=== PATIENT | female | born 1955 | race Caucasian/White ===

== ENCOUNTER 2017-09-23 10:15 | Emergency (ER) | payer OTHER ==
[~2017-09-23] VITALS: Wt 54.5 kg
[2017-09-23] MEDS ORDERED: SOD CHLORIDE 0.9% 500 ML IV STA (11:01)
[2017-09-23] MEDS ORDERED: ACETAMINOPHEN 325 MG TAB PO STA (11:01)
[2017-09-23] MEDS ORDERED: PROCHLORPERAZINE 10 MG INJ IV STA (11:01)
[2017-09-23] MEDS ORDERED: ONDANSETRON 4 MG INJ IV STA (11:01)
[2017-09-23] MEDS ORDERED: DIPHENHYDRAMINE 50 MG INJ IV STA (11:01)
[2017-09-23 11:24] LABS: BASOPHIL # 0.1 10^3/ul (0.0-0.1); BASOPHILS % 0.9 % (0.0-2.0); EOSINOPHILS # 0.1 10^3/ul (0.0-0.5); EOSINOPHILS % 0.8 % (0.0-7.0); HEMATOCRIT 41.9 % (37.0-47.0); HEMOGLOBIN 13.3 g/dl (12.0-16.0); LYMPHOCYTES % 26.5 % (15.0-51.0); MEAN CORPUSCULAR HEMOGLOBIN 26.6 pg (29.0-33.0); MEAN CORPUSCULAR HGB CONC 31.7 g/dl (32.0-37.0); MEAN CORPUSCULAR VOLUME 83.8 fl (82.0-101.0); MEAN PLATELET VOLUME 10.4 fl (7.4-10.4); MONOCYTE # 0.3 10^3/ul (0.3-0.9); MONOCYTES % 3.6 % (0.0-11.0); NEUTROPHIL # 5.1 10^3/ul (1.6-7.5); NEUTROPHILS % 67.4 % (39.0-77.0); PLATELET COUNT 265 10^3/UL (140-415); RED CELL DISTRIBUTION WIDTH 14.2 % (11.5-14.5); WHITE BLOOD COUNT 7.6 10^3/ul (4.8-10.8)
[2017-09-23 11:27] LABS: CALCIUM 9.4 mg/dl (8.4-10.2); CREATININE 0.57 mg/dl (0.44-1.00); INR 0.84; POTASSIUM 3.9 mmol/L (3.5-5.1); PROTIME 11.5 Sec (12.2-14.2); PT RATIO 0.9
--- NOTE | 2017-09-23 11:31 | ERD ---
ER Documentation Chief Complaint Chief Complaint HEADACHE NON TRAUMATIC WITH NAUSEA AND VOMITING AND DIZZINESS.NO NEURO DEF HPI This is a 62-year-old female with a past medical history of hypertension, diabetes and cataracts who is presenting with 4-5 days of bilateral eye pain with 1 day of headache, photophobia, nausea, vomiting and diarrhea. The patient reports that her eyes were itchy several days ago and she got an over- the-counter eye medication. They do not know what the medication was. However , after applying this medication, she developed eye burning and pain. She washed the substance off immediately and copiously, but she has continued to have pain since then. She endorses progressive blurry vision bilaterally as well. She does wear glasses for reading, but she did not bring them today. The patient also endorses a frontal headache centered around her eyes that began more recently. She does have a history of headaches, but she feels like this is more intense and related to her eye pain. She does not endorse any neck stiffness or pain. The patient has had several episodes of nausea with nonbilious nonbloody vomiting. She started to have diarrhea this morning as well. She does not endorse nasal congestion or rhinorrhea. She has not had eye tearing. She has not had any fever or chills. She denies any focal changes. She has no weakness or numbness or tingling to the face or extremities. She has had no chest pain or back pain. She does not have any abdominal pain. She has had no changes to urination. She has no family history of brain aneurysm. ROS All systems reviewed and are negative except as per history of present illness. Medications Home Meds Reported Medications Insulin Aspart* (Novolog Insulin Pen*) 100 Unit/Ml Soln, 0 SC .SLIDING SCALE AC , EA 09/23/17 Allergies Allergies: Coded Allergies: acetaminophen (Verified Allergy, Mild, 09/23/17) PMhx/Soc Anesthesia Reaction: No Hx Respiratory Disorders: No Hx Cardiac Disorders: Yes (HTN) Hx Psychiatric Problems: No Hx Miscellaneous Medical Probl: Yes (CATARACTS ,MIGRAINE) Hx Alcohol Use: No Hx Substance Use: No Hx Tobacco Use: No Smoking Status: Never smoker FmHx Family History: diabetes Physical Exam Vitals Vital Signs Date Time Temp Pulse Resp B/P Pulse Ox O2 Delivery O2 Flow Rate FiO2 09/23/17 12:33 79 18 139/84 98 Room Air 09/23/17 10:21 97.9 91 20 153/97 99 Physical Exam Const: No apparent distress, well-developed, well-nourished Head: Atraumatic Eyes: Normal Conjunctiva. Extraocular movements intact. Pupils are dilated to 6 mm but are equal, round and reactive. Her corneas are not cloudy. No hyphema, no hypopion, no pain with iris constriction, no conjunctival injection ENT: Normal External Ears, Nose and Mouth. Neck: Full range of motion. No meningismus. Resp: Clear to auscultation bilaterally Cardio: Regular rate and rhythm, no murmurs Abd: Soft, non tender, non distended. Normal bowel sounds Skin: No petechiae or rashes Back: No midline or flank tenderness Ext: No cyanosis, or edema Neur: Awake and alert, oriented 4. Cranial nerves intact. No facial droop. Normal strength and sensation in all extremities. Coordination with finger to nose normal. Psych: Normal Mood and Affect Result Diagram: 09/23/17 1030 09/23/17 1030 Results 24 hrs Laboratory Tests Test 09/23/17 10:30 White Blood Count 7.610^3/ul Red Blood Count 5.0010^6/ul Hemoglobin 13.3g/dl Hematocrit 41.9% Mean Corpuscular Volume 83.8fl Mean Corpuscular Hemoglobin 26.6pg Mean Corpuscular Hemoglobin Concent 31.7g/dl Red Cell Distribution Width 14.2% Platelet Count 17616^3/UL Mean Platelet Volume 10.4fl Neutrophils % 67.4% Lymphocytes % 26.5% Monocytes % 3.6% Eosinophils % 0.8% Basophils % 0.9% Nucleated Red Blood Cells % 0.0/100WBC Neutrophils # 5.110^3/ul Lymphocytes # 2.010^3/ul Monocytes # 0.310^3/ul Eosinophils # 0.110^3/ul Basophils # 0.110^3/ul Nucleated Red Blood Cells # 0.010^3/ul Prothrombin Time 11.5Sec Prothrombin Time Ratio 0.9 INR International Normalized Ratio 0.84 Activated Partial Thromboplast Time 29.0Sec Sodium Level 141mmol/L Potassium Level 3.9mmol/L Chloride Level 104mmol/L Carbon Dioxide Level 25mmol/L Anion Gap 16 Blood Urea Nitrogen 20mg/dl Creatinine 0.57mg/dl Glucose Level 220mg/dl Calcium Level 9.4mg/dl Current Medications Medications (Trade) Dose Ordered Sig/Alia Route PRN Reason Start Time Stop Time Status Last Admin Dose Admin Sodium Chloride (NS) 500 ml @ 500 mls/hr Q1H STAT IV 09/23/17 11:01 09/23/17 12:00 DC 09/23/17 11:27 Acetaminophen (Tylenol Tab) 650 mg ONCE STAT PO 09/23/17 11:01 09/23/17 11:03 DC Prochlorperazine (Compazine Inj) 10 mg ONCE STAT IV 09/23/17 11:01 09/23/17 11:03 DC 09/23/17 11:26 Ondansetron HCl (Zofran Inj) 4 mg ONCE STAT IV 09/23/17 11:01 09/23/17 11:03 DC 09/23/17 11:28 Diphenhydramine HCl (Benadryl) 25 mg ONCE STAT IV 09/23/17 11:01 09/23/17 11:03 DC 09/23/17 11:28 Fluorescein Sodium (Gzsow-W-Nukfo) 1 strip ONCE ONCE BOTH EYES 09/23/17 14:00 09/23/17 14:01 DC Tetracaine HCl (Tetracaine 0.5% Steri-Unit Jeniffer) 1 drop ONCE ONCE BOTH EYES 09/23/17 14:00 09/23/17 14:01 DC Ketorolac Tromethamine (Toradol) 15 mg ONCE STAT IV 09/23/17 14:14 09/23/17 14:15 DC 09/23/17 14:20 Procedures/MDM MDM The patient's presentation warrants further investigation. The patient's visual impairment and burning is likely associated to whatever substance she applied to her eye several days ago. It may be an allergic vs. inflammatory reaction. It was an ophthalmologic solution that the patient applied, so it is unlikely to be related to a caustic etiology. The patient endorses a headache now, likely related to the eye complaint as well. We will provide medications for a headache in the ER. We will complete blood work and a CT head to reveal any other organic causes of the visual impairment. The patient has cataracts and is at risk of diabetic retinopathy. The patient's history is inconsistent with glaucoma. Unfortunately our tonometer is not working and ocular pressure cannot be quantified. Qualitatively, the ocular exam did not reveal any increased firmness. Additionally, the pupils are reactive. I do not suspect glaucoma. There was no proptosis to suggest retrobulbar hematoma. The patient's EOM are intact. There was no trauma. The patient has no visual field cuts. I have low suspicion for bilateral atraumatic sudden onset retinal detachment or vitreous hemorrhage. Her visual acuity is poor, OD20/200, OS20/100. It is unclear what her baseline visual acuity is, especially since she does not have her glasses. Her corneas do have peripheral cloudiness, but there is nothing central. The corneas appear clear without hyphema, hypopion or cell and flare. I do not suspect endophthalmitis or anterior uveitis. The patient does not have ipsilateral or contralateral pain with pupillary constriction. She does not appear to have iritis. LABS The patient's blood work was obtained and reviewed. The patient's CBC shows no leukocytosis or left shift. The patient is afebrile and does not appear systemically ill. I do not suspect a systemic infection. The patient is not anemic today. The patient's platelet count is unremarkable. The patient's BMP shows no signs of metabolic or electrolyte abnormality. The patient has normal renal function testing. EKG EKG read by me: Rate/Rhythm: Regular rate and rhythm at a rate of 78 bpm Intervals: Normal Bandy: Normal Impression: No evidence of ischemia or arrhythmia IMAGING CT HEAD FINDINGS: There is no intracranial hemorrhage, mass effect, or midline shift. No extra-axial fluid collection is seen. The ventricles and sulci are normal in size and configuration. The density of the brain is normal, and the beltran white matter differentiation appears well-preserved. The visualized paranasal sinuses and osseous structures are grossly unremarkable. IMPRESSION: 1. No evidence of acute intracranial pathology. 2. The brain is normal in appearance. Electronically viewed and signed by .Gokul Berger MD, on 09/23/2017 11: 42 CXR FINDINGS: The heart and mediastinum are within normal limits. There is a patchy right lower lobe infiltrate. The lungs are otherwise clear. There is no pleural effusion or pneumothorax. IMPRESSION: Mild patchy right lower lobe infiltrate. Electronically viewed and signed by .Gilmer Sepulveda MD, on 09/23/2017 11: 40 TREATMENT/DISPOSITION The patient's headache did improve in the ER after treatment. The patient's CT head was normal. I do not suspect ICH or SAH. Several ophthalmologic emergencies have been ruled out. A christianson lamp was used in conjunction with tetracaine and fluorescein that did not reveal a corneal abrasion. The tetracaine provided only minimal relief of symptoms. The patient may utilize artificial tears at home. She may use benadryl or hydroxyzine as need for allergic symptoms. She was strongly encouraged to follow up with ophthalmology as soon as possible. The case was discussed with Dr. Rouse who agreed that she required rapid outpatient evaluation and stated that he may see her as an outpatient. She will call the office to schedule an appointment upon discharge. At this time, I feel that the patient stable for discharge. She will need follow-up with her primary care physician tomorrow who can help to coordinate ophthalmology referral. She will be given strict precautions with which to return to the emergency department. The patient understands not to drive until she is cleared by a physician. The patient's blood pressure was elevated at greater than 120/80 while in the emergency department. The patient was otherwise stable with no evidence of hypertensive urgency or emergency. The patient will require reevaluation of his blood pressure in 2-3 days, but this may be completed by a primary care physician as an outpatient. He does not require admission for blood pressure control. Departure Diagnosis: Primary Impression: Headache Headache type: unspecified Headache chronicity pattern: unspecified pattern Intractability: not intractable Qualified Code: R51 - Nonintractable headache, unspecified chronicity pattern, unspecified headache type Additional Impressions: Visual acuity reduced Blurry vision, bilateral Condition: Stable EVELYN ACUÑA MD Sep 23, 2017 11:31
--- NOTE | 2017-09-23 11:40 | RADRPT ---
PROCEDURE: XR Chest. CLINICAL INDICATION: chest pain TECHNIQUE: Single frontal view of the chest was obtained COMPARISON: None FINDINGS: The heart and mediastinum are within normal limits. There is a patchy right lower lobe infiltrate. The lungs are otherwise clear. There is no pleural effusion or pneumothorax. RPTAT: AA IMPRESSION: Mild patchy right lower lobe infiltrate. .Gilmer Sepulveda MD, MD Date Time Electronically viewed and signed by .Gilmer Sepulveda MD, on 09/23/2017 11:40 .S/
--- NOTE | 2017-09-23 11:42 | RADRPT ---
PROCEDURE: CT Brain without contrast. CLINICAL INDICATION: Headache. Dizziness. TECHNIQUE: A CT of the brain was performed on a multidetector CT scanner utilizing axial imaging f rom the skull base through the vertex without IV contrast. Images were reviewed on a PACS workstati on. The CTDIvol is 45 mGy and the DLP is 720 mGycm. One or more of the following dose reduction techniques were utilized: 1.) Automated exposure control 2.) Adjustment of the mA +/- kV according to patient's size 3.) Use of iterative reconstruction technique. COMPARISON: None FINDINGS: There is no intracranial hemorrhage, mass effect, or midline shift. No extra-axial fluid collection is seen. The ventricles and sulci are normal in size and configuration. The density of the brain is normal, and the beltran white matter differentiation appears well-preserved. The visualized paranasal sinuses and osseous structures are grossly unremarkable. IMPRESSION: 1. No evidence of acute intracranial pathology. 2. The brain is normal in appearance. .Gokul Berger MD, MD Date Time Electronically viewed and signed by .Gokul Berger MD, MD on 09/23/2017 11:42 .A/
[2017-09-23] MEDS ORDERED: NOVO3I SC (11:58)
[2017-09-23 12:33] VITALS: BP 139/84; PULSE 79; RESP 18
[2017-09-23] MEDS ORDERED: FLUORESCEIN STRIP BOTH EYES ONE (14:00)
[2017-09-23] MEDS ORDERED: TETRACAINE 0.5% 4 ML OPH BOTH EYES ONE (14:00)
[2017-09-23] MEDS ORDERED: KETOROLAC 15 MG INJ IV STA (14:14)
== END 2017-09-23 14:46 | disposition home or self-care (01) ==
LOC: FTE 10:15
DX: R51 Headache (principal); H53.8 Other visual disturbances; I10 Essential (primary) hypertension; E11.9 Type 2 diabetes mellitus without complications; R07.9 Chest pain, unspecified; Z79.4 Long term (current) use of insulin
CPT/HCPCS: 36415; 70450; 71010; 80048; 85025; 85610; 85730; 93005; 96374; 96375; J0780; J1200; J1885; J2405; J7040; Z7502; Z7610